=== PATIENT | male | born 1980 | race Caucasian/White ===

== ENCOUNTER 2024-12-26 03:56 | Emergency (ER) | payer SELFPAY ==
[~2024-12-26] VITALS: Ht 177.8 cm; Wt 86.2 kg
[2024-12-26 04:05] VITALS: BP 128/62; TEMP 98; O2SAT 98
== END 2024-12-26 04:23 | disposition left against medical advice (07) ==
LOC: ER 04:17
DX: T65.91XA Toxic effect of unspecified substance, accidental (unintentional), initial encounter (principal); Z53.21 Procedure and treatment not carried out due to patient leaving prior to being seen by health care provider; Y92.89 Other specified places as the place of occurrence of the external cause